=== PATIENT | female | born 1955 ===

== ENCOUNTER 2020-06-16 16:31 | Emergency (ER) | payer OTHER ==
[~2020-06-16] VITALS: Ht 162.6 cm; Wt 72.6 kg
== END 2020-06-16 19:40 | disposition home or self-care (01) ==
LOC: ER 16:31
DX: S43.014A Anterior dislocation of right humerus, initial encounter (principal); Z88.1 Allergy status to other antibiotic agents; W01.10XA Fall on same level from slipping, tripping and stumbling with subsequent striking against unspecified object, initial encounter
CPT/HCPCS: 23650; 73020; 73030; 96361-59; 96374-59; 96375-59; 99283-25; J1170; J1885; J2405; J2704; J7030

== ENCOUNTER → 2020-10-22 | Outpatient (CLI) | payer OTHER ==
[2020-10-27 13:08] LABS: HPV 16 Negative (Negative); HPV 18 Negative (Negative); HPV OTHER HR TYPES Negative (Negative)
== END | disposition home or self-care (01) ==
LOC: LAB SHORT 11:40
PROVIDERS: Family Medicine
DX: Z01.419 Encounter for gynecological examination (general) (routine) without abnormal findings (principal)
CPT/HCPCS: 87624; G0145